=== PATIENT | male | born 1980 | race Caucasian/White ===

== ENCOUNTER → 2020-04-26 | Outpatient (CLI) | payer SELFPAY | LOC: M LABSMTC 09:15 | PROVIDERS: ATTEND Pediatrics | DX: Z20.828 Contact with and (suspected) exposure to other viral communicable diseases (principal) ==

== ENCOUNTER → 2021-10-05 | Outpatient (REF) | payer BC ==
[2021-10-05 09:33] LABS: SEMEN APPEARANCE OPAQUE (OPAQUE); SEMEN VISCOSITY LIQUID (LIQUID); SEMEN VOLUME 3.3 ml (2.0-5.0); SEMEN pH 8.5 (7.0-8.0); WBC CONCENTRATION <=1 M/ml (<=1 M/ml)
[2021-10-05 09:34] LABS: SPERM CONCENTRATION 80.6 M/ml (>=15.0)
== END ==
LOC: M SFHCWAGY 09:16
PROVIDERS: ATTEND Specialist
DX: N46.9 Male infertility, unspecified (principal)

== ENCOUNTER → 2022-02-12 | Outpatient (REF) | payer OTHER ==
[2022-02-12 08:42] LABS: SEMEN APPEARANCE OPAQUE (OPAQUE)
[2022-02-12 08:43] LABS: SEMEN VISCOSITY LIQUID (LIQUID); SEMEN VOLUME 2.5 ml (2.0-5.0); SPERM CONCENTRATION 103.7 M/ml (>=15.0); WBC CONCENTRATION <=1 M/ml (<=1 M/ml)
== END ==
LOC: M LAB REF 08:37
PROVIDERS: ATTEND Obstetrics & Gynecology Reproductive Endocrinology
DX: Z31.41 Encounter for fertility testing (principal)

== ENCOUNTER → 2022-03-09 | Outpatient (REF) | payer OTHER ==
[2022-03-09 09:07] LABS: SEMEN APPEARANCE OPAQUE (OPAQUE); SEMEN VISCOSITY LIQUID (LIQUID); SEMEN VOLUME 2.5 ml (2.0-5.0)
[2022-03-09 09:08] LABS: SPERM CONCENTRATION 58.8 M/ml (>=15.0); WBC CONCENTRATION <=1 M/ml (<=1 M/ml)
== END ==
LOC: M LAB REF 09:04
PROVIDERS: ATTEND Obstetrics & Gynecology Reproductive Endocrinology
DX: Z31.41 Encounter for fertility testing (principal)

== ENCOUNTER → 2024-08-03 | Outpatient (CLI) | payer OTHER | LOC: M LAB 12:12 | PROVIDERS: ATTEND Obstetrics & Gynecology Reproductive Endocrinology | DX: Z31.41 Encounter for fertility testing (principal) ==

== ENCOUNTER → 2024-08-03 | Outpatient (REF) | payer OTHER ==
[2024-08-03 12:01] LABS: SEMEN APPEARANCE OPAQUE (OPAQUE); SEMEN VISCOSITY VISCOUS (LIQUID); SEMEN VOLUME 2.5 ml (2.0-5.0); SPERM CONCENTRATION 139.5 M/ml (>=15.0); WBC CONCENTRATION <=1 M/ml (<=1 M/ml)
[2024-08-03 12:02] LABS: TOTAL PROGRESSIVE SPERM 52.1 M/Ejac.
== END ==
LOC: M LAB REF 11:54
PROVIDERS: ATTEND Obstetrics & Gynecology Reproductive Endocrinology
DX: Z31.41 Encounter for fertility testing (principal)

== ENCOUNTER → 2024-08-31 | Outpatient (REF) | payer OTHER ==
[2024-08-31 10:30] LABS: SEMEN APPEARANCE OPAQUE (OPAQUE); SEMEN VISCOSITY LIQUID (LIQUID); SEMEN VOLUME 3.2 ml (2.0-5.0)
[2024-08-31 10:32] LABS: WBC CONCENTRATION <=1 M/ml (<=1 M/ml)
[2024-08-31 10:33] LABS: SPERM CONCENTRATION 91.7 M/ml (>=15.0)
[2024-08-31 10:34] LABS: TOTAL PROGRESSIVE SPERM 19.7 M/Ejac.
== END ==
LOC: M LAB REF 10:13
PROVIDERS: ATTEND Obstetrics & Gynecology Reproductive Endocrinology
DX: Z31.41 Encounter for fertility testing (principal)